=== PATIENT | male | born 1960 | race African-American/Black ===

== ENCOUNTER 2020-04-01 22:05 | Emergency (ER) | payer MEDICARE, MEDICAID ==
[2020-04-01 22:26] LABS: #Eosinphils 0.1 thou/uL (0.0-0.7); #Lymphocytes 1.9 thou/uL (1.20-3.40); #Monocytes 0.4 thou/uL (0.11-0.59); #Neutrophils 4.1 thou/uL (1.40-6.50); %Basophils 0.7 % (0.0-1.0); %Eosinophils 1.7 % (0.0-10.0); %Lymphocytes 28.7 % (21.0-51.0); %Monocytes 6.8 % (0.0-10.0); Hemoglobin 11.3 g/dL (14.0-18.0); Mean Corpuscular HGB CONC 31.8 g/dL (32.0-36.0); Mean Corpuscular Hemoglobin 28.1 pg (27.0-31.0); Mean Corpuscular Volume 88.3 fL (78.0-98.0); Mean Platelet Volume 6.8 fL (7.4-10.4); Platelet Count 217 thou/uL (130-400); RBC Distribution Width 12.3 % (11.5-14.5); Red Blood Cell (RBC) Count 4.04 mill/uL (4.70-6.10); White Blood Cell (WBC) Count 6.5 thou/uL (4.8-10.8)
[2020-04-01 22:47] LABS: ALT (SGPT) 26 U/L (8-55); AST (SGOT) 16 U/L (5-34); Albumin 3.4 g/dL (3.5-5.0); Alkaline Phosphatase 80 U/L (40-110); Anion Gap 12 mmol/L (10-20); BUN (Urea Nitrogen) 13 mg/dL (8.4-25.7); Bilirubin, Total 0.1 mg/dL (0.2-1.2); CK (CPK) 124 U/L (30-200); Calc. Creatinine Clearance 0 mL/min (70-130); Carbon Dioxide 23 mmol/L (22-29); Chloride 109 mmol/L (98-107); Estimated GFR-MDRD Greater than 90; Globulin 2.7 g/dL (2.4-3.5); Glucose 110 mg/dL (70-105); Potassium 4.2 mmol/L (3.5-5.1); Protein, Total 6.1 g/dL (6.0-8.3); Sodium 140 mmol/L (136-145)
[2020-04-01 22:47] LABS: Bilirubin Small (Negative); Blood, Urine Negative (Negative); Clarity Clear (Clear); Glucose, Urine (Dipstick) 100 mg/dL (Negative); Leukocyte Negative (Negative); Nitrite Negative (Negative); Protein, Urine (Dipstick) Negative (Neg-Trace)
[2020-04-01 22:48] LABS: Acetaminophen Less than 6.0 mcg/mL (10.0-30.0); Alcohol Less than 10 mg/dL (Less than 10); Salicylate Less than 8.0 mg/dL (15.0-30.0)
[2020-04-01 22:55] LABS: Amphetamine Not Detected (NotDetected); Barbiturates Screen Not Detected (NotDetected); Benzodiazepine Screen Not Detected (NotDetected); Cocaine Metabolite Screen Not Detected (NotDetected); Medtox Control Line Valid? VALID (VALID); Methadone Not Detected (NotDetected); Methamphetamine Not Detected (NotDetected); Opiate Screen Not Detected (NotDetected); Oxycodone Screen Not Detected (NotDetected); Phencyclidine (PCP) Not Detected (NotDetected); THC/Cannabinoid Screen Not Detected (NotDetected); Tricyclic Screen Detected (NotDetected)
[2020-04-01] MEDS ORDERED: Sodium Chloride 0.9% 1,000 ML ONE (22:58)
--- NOTE | 2020-04-02 07:26 | CT ---
HEAD CT WITHOUT CONTRAST: Date: 04/01/2020 COMPARISON: None. HISTORY: Fall. TECHNIQUE: Axial CT imaging at 5 mm intervals from vertex through skull base with coronal and sagittal reformatt ed imaging obtained. FINDINGS: There is mucosal thickening involving the alveolar recess and bilateral maxillary sinuses. There is n o displaced calvarial fracture, intracranial hemorrhage, midline shift, or mass effect. IMPRESSION: No acute findings. POS: [facility]
--- NOTE | 2020-04-02 07:31 | RAD ---
FRONTAL RADIOGRAPH CHEST: Date: 04/01/2020 COMPARISON: None. HISTORY: Altered mental status. FINDINGS: Lungs are clear. Heart and mediastinal contours appear grossly unremarkable. IMPRESSION: No acute findings. POS: [facility]
== END 2020-04-02 00:55 | disposition short-term general hospital (02) ==
LOC: NAV ERS 22:05
DX: R41.82 Altered mental status, unspecified (principal); E78.00 Pure hypercholesterolemia, unspecified; E78.5 Hyperlipidemia, unspecified; I10 Essential (primary) hypertension; Z79.899 Other long term (current) drug therapy; W19.XXXA Unspecified fall, initial encounter
CPT/HCPCS: 36415; 51701; 70450; 71045; 80053; 80306; 80307; 81003; 82550; 84443; 84484; 85025; 93005; J7050